=== PATIENT | male | born 1935 | race Caucasian/White ===

== ENCOUNTER → 2017-11-13 | Outpatient (CLI) | payer MEDICARE, BC ==
[2015-04-30 09:53] VITALS: BMI 28.4
[~2017-11-13] MED LIST: ACLI400A2 IH; AMLO-96 PO; AMLO-99 PO; AMO500 PO; ASC500 PO; ASPI-1471 PO; ASPI-757 PO; ATOR20TA22 PO; ATOR40TA24 PO; ATOR40TA69 PO; ATR80PT PO; AUG875 PO; Amoxicillin/Clavulanate K PO; Atorvastatin Calcium PO; CALC-1046; CALC-488 PO; CHERRY; CHERRY JUICE PO; CIT500PT PO; CITRUCEL; CLOB15CR21 TP; CLOB15CR22 TP; CLOB15OI16 TP; CLOP75TA PO; DOCU-202 PO; DOXY-181 PO; FERR325T24 PO; FLAV100L PO; GAB100 PO; GAB300 PO; GABA-490 PO; GABA-549 PO; HYDR12.556 PO; HYDR12.561 PO; HYDROCHLOROTHYAZIDE; LEVO-85 PO; LIS10 PO; LIS20 PO; LOR5/325 PO; LOSA100T63 PO; LOSA100T67 PO; LYSI500T34 PO; LYSINE; MAXIVISION; MELO-205 PO; METH454P5 PO; METO-222 PO; METO-257 PO; METO100T20 PO; METO1TAB5 PO; METOPROLOL PO; METR-1 PO; METR45CR9 TP; MULT1TAB64 PO; NEXIUM; OMEGA 3; OMEP-125 PO; ONDA4TAB PO; OXYGEN INH; OXYGENHOME INH; PANT40TA65 PO; PER PO; PIR10 PO; PRAS10TA PO; PSYL0.5235 PO; PSYL3.4P2 PO; PSYL660P5; RABE20TA33 PO; RANI-324 PO; SILD100T59 PO; SILD25TA6 PO; SIMV-44 PO; TADA5TAB7 PO; TIO18R INH; TRIA15CR40 TP; VERIFIED; VIAGRA; VITA400T7 PO; [UNRECOGNIZED DRUG - CODE] PO; [UNRECOGNIZED DRUG - CODE] TP; [UNRECOGNIZED DRUG - OTHER] PO
== END ==
LOC: LAB 14:32
PROVIDERS: ATTEND Nurse Practitioner Family
DX: Z02.9 Encounter for administrative examinations, unspecified (principal)
CPT/HCPCS: 88305

== ENCOUNTER 2017-12-08 13:34 | Outpatient (RCR) | payer MEDICARE, BC ==
[2015-04-30 09:53] VITALS: BMI 28.4
[2016-07-08 13:12] VITALS: BP 113/73
[~2017-12-08 13:34] MED LIST changes: +DIA5 PO; -RANI-324 PO; +RANI-366 PO
[2017-12-08] MEDS ORDERED: CALC1TAB32 PO (15:47)
[2017-12-09] MEDS ORDERED: GADOBENATE 529MG/1ML 15ML VIAL IVP ONE (13:33)
== END 2017-12-09 14:43 | disposition home or self-care (01) ==
LOC: RAON 13:34
PROVIDERS: ATTEND Radiology Radiation Oncology
DX: C61 Malignant neoplasm of prostate (principal)
CPT/HCPCS: 36415; 84153; A9577; G0463; 99212

== ENCOUNTER → 2017-12-09 | Outpatient (CLI) | payer MEDICARE, BC ==
[2015-04-30 09:53] VITALS: BMI 28.4
[~2017-12-09] MED LIST changes: +CALC1TAB32 PO
[2017-12-09 10:20] LABS: PLATELET COUNT, AUTOMATED 217 K/uL (150-450)
--- NOTE | 2017-12-09 14:56 | RADIOLOGY IMAGING REPORT ---
FACILITY: [facility] PATIENT NAME: Sonu Garcia : 1935 MR: [id number] V: [id number] EXAM DATE: ORDERING PHYSICIAN: JIMMY WOLFE TECHNOLOGIST: Location: [facility] Patient: Sonu Garcia : 1935 Visit/Account:[id number] Date of Sevice: 12/09/2017 EXAMINATION: MRI Brain without IV contrast MRI Brain with IV contrast History: TIA, history of CVA. COMPARISON STUDIES: 10/18/2014 TECHNIQUE: Multi-planar, multi-sequence brain MRI was performed before and after IV gadolinium. Contrast: 15 mL of IV gadobenate FINDINGS: Paranasal sinuses / mastoid air cells: Mild progression of paranasal sinus disease. A left mastoid e ffusion appears stable. New small right mastoid effusion. Calvarium and scalp: negative White matter: Remote right occipital lobe infarct. Stable findings of mild chronic small vessel dise ase. Ventricles / sulci / fissures: negative Masses / hemorrhage / midline shift: negative Extra-axial spaces: Normal for age. Enhancement pattern: negative Vascular structures: negative Sagittal midline structures: negative Orbits: negative Visualized upper neck: negative IMPRESSION: 1. No evidence of an intracranial mass, hemorrhage or acute ischemia. 2. Stable findings of mild chronic small vessel disease and remote right occipital lobe infarct. 3. Progression of moderate paranasal sinus disease. 4. New small right mastoid effusion, a left mastoid effusion appear stable. Report Dictated By: Niles Garcia MD at 12/09/2017 2:46 PM Report E-Signed By: Niles Garcia MD at 12/09/2017 2:51 PM WSN:[id number]
== END ==
LOC: MRI 01:19
PROVIDERS: ATTEND Internal Medicine
DX: G93.6 Cerebral edema (principal); G45.9 Transient cerebral ischemic attack, unspecified; J44.9 Chronic obstructive pulmonary disease, unspecified; Z86.73 Personal history of transient ischemic attack (TIA), and cerebral infarction without residual deficits
CPT/HCPCS: 36415; 70553; 82040; 82247; 82310; 82374; 82435; 82565; 82947; 84075; 84132; 84155; 84295; 84450; 84460; 84520; 85025

== ENCOUNTER → 2018-08-24 | Outpatient (CLI) | payer MEDICARE, BC ==
[2015-04-30 09:53] VITALS: BMI 28.4
[~2018-08-24] MED LIST changes: +AMLO-125 PO; +AMLO-127 PO; -AMLO-96 PO; -AMLO-99 PO; +AMLO2.5T78 PO; -LOSA100T67 PO; +LOSA100T75 PO; +LOSA50TA80 PO
[2018-08-24 14:52] LABS: PLATELET COUNT, AUTOMATED 221 K/uL (150-450)
[2018-08-24 14:53] LABS: LDL CHOLESTEROL 65 mg/dl
== END ==
LOC: LAB 14:17
PROVIDERS: ATTEND Internal Medicine
DX: I10 Essential (primary) hypertension (principal); Z86.73 Personal history of transient ischemic attack (TIA), and cerebral infarction without residual deficits; E78.5 Hyperlipidemia, unspecified
CPT/HCPCS: 36415; 82040; 82247; 82310; 82374; 82435; 82465; 82565; 82947; 83718; 84075; 84132; 84155; 84295; 84443; 84450; 84460; 84478; 84520; 85025

== ENCOUNTER 2018-09-04 10:54 | Emergency (ER) | payer OTHER, MEDICARE, BC ==
[2015-04-30 09:53] VITALS: Wt 85.7 kg
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
[2018-09-04] MEDS ORDERED: AMLO-125 PO (11:28)
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
[2018-09-04 14:30] VITALS: BP 158/92
== END 2018-09-04 14:51 | disposition home or self-care (01) ==
LOC: ER 11:05
DX: S16.1XXA Strain of muscle, fascia and tendon at neck level, initial encounter (principal); V49.40XA Driver injured in collision with unspecified motor vehicles in traffic accident, initial encounter
CPT/HCPCS: 70450; 72125; 99284

== ENCOUNTER → 2018-09-04 | Outpatient (CLI) | payer OTHER, MEDICARE, BC ==
[2015-04-30 09:53] VITALS: BMI 28.4
== END ==
LOC: AMB 10:36
PROVIDERS: ATTEND Nurse Practitioner
DX: R51 Headache (principal); M54.2 Cervicalgia; Z79.01 Long term (current) use of anticoagulants; R09.02 Hypoxemia; V49.60XA Unspecified car occupant injured in collision with unspecified motor vehicles in traffic accident, initial encounter
CPT/HCPCS: A0425; A0427

== ENCOUNTER → 2018-11-01 | Outpatient (CLI) | payer MEDICARE, BC ==
[2015-04-30 09:53] VITALS: BMI 28.4
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
== END ==
LOC: RAD 15:21
PROVIDERS: ATTEND Internal Medicine
DX: M17.12 Unilateral primary osteoarthritis, left knee (principal)

== ENCOUNTER 2018-11-19 09:45 | Emergency (ER) | payer MEDICARE, BC ==
[2015-04-30 09:53] VITALS: Wt 86.0 kg
--- NOTE | 2018-11-19 09:57 | ER Report ---
History and Physical Time Seen By : 09:57 HPI/ROS 83 y/o male presents to the ED with a complaint of feeling lightheaded briefly. Symptoms have resolved. Denies CP/SOB/abdominal pain/n/v/d. No GAINES. No recent trauma. Has taken less PO, but does not know why. Denies focal neuro deficits. Allergies: Uncoded Allergies: HAYFEVER (Allergy, Unknown, UNKNOWN, 01/14/12) Home Meds Active Scripts Pantoprazole Sodium (PANTOPRAZOLE SODIUM) 40 Mg Tablet.dr, 40 MG PO QDAY, #90 TAB.SR 3 Refills Prov:JIMMY WOLFE MD 08/24/18 Atorvastatin Calcium (LIPITOR) 40 Mg Tablet, 1 TAB PO QDAY, #90 TAB 3 Refills Prov:JIMMY WOLFE MD 08/24/18 Gabapentin (NEURONTIN) 300 Mg Capsule, 1 CAP PO TID, #270 CAPSULE 3 Refills Prov:JIMMY WOLFE MD 08/24/18 Prasugrel Hcl (EFFIENT) 10 Mg Tablet, 10 MG PO QDAY, #90 TAB 3 Refills Prov:JIMMY WOLFE MD 08/24/18 Losartan Potassium (LOSARTAN POTASSIUM) 50 Mg Tablet, 50 MG PO QDAY, #90 TAB 3 Refills Prov:JIMMY WOLFE MD 08/24/18 Metoprolol Tartrate (METOPROLOL TARTRATE) 100 Mg Tablet, 1 TAB PO BID, #180 TAB 3 Refills Prov:JIMMY WOLFE MD 08/24/18 Reported Medications Amlodipine Besylate (AMLODIPINE BESYLATE) 5 Mg Tablet, 0.5 TAB PO QDAY for Blood Pressure for 90 Days, #90 TAB 09/04/18 Calcium Carb & Cit/Vitamin D3 (CALCIUM + D3 ER TABLET) 1 Each Tablet.er, 1 EACH PO DAILY 12/08/17 Clobetasol Propionate (CLOBETASOL PROPIONATE) 15 Gm Cream..g., TP PRN for PAIN 05/15/17 Multivitamin (MULTI VITAMIN DAILY) 1 Each Tablet, 1 EACH PO QDAY 05/15/17 Oxygen (OXYGEN) Inha, 3-4 L INH, L 01/28/17 Psyllium Husk (Metamucil) Unknown Strength Powder, BID 01/28/17 Tellez Flavor (TELLEZ CONCENTRATE) Unknown Strength Syrup, 3 OZ PO DAILY 01/28/17 Discontinued Reported Medications Tadalafil (CIALIS) 5 Mg Tablet, 1-2 TAB PO PRN 01/28/17 Hx Smoking: No Smoking Status: Never Smoker Hx Substance Use Disorder: No Hx Alcohol Use: Yes Constitutional Vital Sign - Last 24 Hours 11/19/18 11/19/18 11/19/18 11/19/18 09:53 09:53 10:00 10:15 Temp 97.3 Pulse 58 48 47 Resp 14 16 8 B/P (MAP) 136/86 136/86 (103) 135/74 (94) Pulse Ox 88 90 93 O2 Delivery Nasal Cannula 11/19/18 11/19/18 11/19/18 11/19/18 10:30 10:45 11:00 11:15 Pulse ??? 47 ??? 47 Resp 15 15 22 B/P (MAP) 129/80 (96) ???/??? (1665) Pulse Ox 92 92 90 11/19/18 11/19/18 11/19/18 11/19/18 11:27 11:30 11:35 11:50 Pulse 48 49 48 Resp 13 21 14 B/P (MAP) 122/82 (95) Pulse Ox 91 92 90 O2 Flow Rate 3.0 11/19/18 11/19/18 12:00 12:05 Pulse 49 B/P (MAP) 134/82 (99) Pulse Ox 90 Physical Exam General Appearance: The patient is alert, has no immediate need for airway protection and no current signs of toxicity. Eyes: Pupils equal and round no injection. Respiratory: Chest is non tender, lungs are clear to auscultation. Cardiac: regular rate and rhythm Gastrointestinal: Abdomen is soft and non tender, no masses, bowel sounds normal. Neck: Neck is supple and non tender. Extremities have full range of motion and are non tender. Skin: No rashes or lesions. Medical Decision Making Data Points Result Diagram: 11/19/1895411/19/18954 Laboratory Hematology Test 11/19/18 09:55 11/19/18 10:57 Red Blood Count 5.76 M/uL (4.00-5.60) Mean Corpuscular Volume 92.2 fL (80.0-96.0) Mean Corpuscular Hemoglobin 30.5 pg (26.0-33.0) Mean Corpuscular Hemoglobin Concent 33.1 g/dL (32.0-36.0) Red Cell Distribution Width 13.7 % (11.5-14.5) Mean Platelet Volume 7.9 fL (7.2-11.1) Neutrophils (%) (Auto) 71.0 % (39.4-72.5) Lymphocytes (%) (Auto) 10.7 % (17.6-49.6) Monocytes (%) (Auto) 12.6 % (4.1-12.4) Eosinophils (%) (Auto) 4.2 % (0.4-6.7) Basophils (%) (Auto) 1.5 % (0.3-1.4) Nucleated RBC Relative Count (auto) 0.0 /100WBC Neutrophils # (Auto) 3.7 K/uL (2.0-7.4) Lymphocytes # (Auto) 0.6 K/uL (1.3-3.6) Monocytes # (Auto) 0.7 K/uL (0.3-1.0) Eosinophils # (Auto) 0.2 K/uL (0.0-0.5) Basophils # (Auto) 0.1 K/uL (0.0-0.1) Nucleated RBC Absolute Count (auto) 0.00 K/uL Sodium Level 137 mmol/L (137-145) Potassium Level 4.2 mmol/L (3.5-5.0) Chloride Level 104 mmol/L (98-107) Carbon Dioxide Level 25 mmol/L (22-30) Blood Urea Nitrogen 19 mg/dl (9-21) Creatinine 1.10 mg/dl (0.66-1.25) Glomerular Filtration Rate Calc > 60.0 Random Glucose 90 mg/dl (75-110) Calcium Level 8.9 mg/dl (8.4-10.2) Total Bilirubin 0.9 mg/dl (0.2-1.3) Aspartate Amino Transf (AST/SGOT) 27 U/L (0-35) Alanine Aminotransferase (ALT/SGPT) 24 U/L (0-56) Alkaline Phosphatase 66 U/L (0-126) Total Protein 7.0 g/dl (6.3-8.2) Albumin 4.4 g/dl (3.5-5.0) Urine Color Straw Urine Clarity Clear Urine pH 7.0 pH (4.8-9.5) Urine Specific Bradford 1.004 Urine Protein Negative mg/dL (NEGATIVE) Urine Glucose (UA) Negative mg/dL (NEGATIVE) Urine Ketones Negative mg/dL (NEGATIVE) Urine Blood Negative (NEGATIVE) Urine Nitrite Negative (NEGATIVE) Urine Bilirubin Negative (NEGATIVE) Urine Urobilinogen Negative mg/dL (0.2-1.9) Urine Leukocyte Esterase Negative (NEGATIVE) Urine RBC None /HPF (0-2/HPF) Urine WBC <1 /HPF (0-5/HPF) Urine Squamous Epithelial Cells None /LPF (</=FEW) Urine Bacteria Negative /HPF (NONE-FEW) Urine Mucus None /HPF (NONE-FEW) Chemistry Test 11/19/18 09:55 11/19/18 10:57 White Blood Count 5.3 k/uL (4.5-11.0) Red Blood Count 5.76 M/uL (4.00-5.60) Hemoglobin 17.5 g/dL (14.0-18.0) Hematocrit 53.0 % (42.0-52.0) Mean Corpuscular Volume 92.2 fL (80.0-96.0) Mean Corpuscular Hemoglobin 30.5 pg (26.0-33.0) Mean Corpuscular Hemoglobin Concent 33.1 g/dL (32.0-36.0) Red Cell Distribution Width 13.7 % (11.5-14.5) Platelet Count 197 K/uL (150-450) Mean Platelet Volume 7.9 fL (7.2-11.1) Neutrophils (%) (Auto) 71.0 % (39.4-72.5) Lymphocytes (%) (Auto) 10.7 % (17.6-49.6) Monocytes (%) (Auto) 12.6 % (4.1-12.4) Eosinophils (%) (Auto) 4.2 % (0.4-6.7) Basophils (%) (Auto) 1.5 % (0.3-1.4) Nucleated RBC Relative Count (auto) 0.0 /100WBC Neutrophils # (Auto) 3.7 K/uL (2.0-7.4) Lymphocytes # (Auto) 0.6 K/uL (1.3-3.6) Monocytes # (Auto) 0.7 K/uL (0.3-1.0) Eosinophils # (Auto) 0.2 K/uL (0.0-0.5) Basophils # (Auto) 0.1 K/uL (0.0-0.1) Nucleated RBC Absolute Count (auto) 0.00 K/uL Glomerular Filtration Rate Calc > 60.0 Calcium Level 8.9 mg/dl (8.4-10.2) Total Bilirubin 0.9 mg/dl (0.2-1.3) Aspartate Amino Transf (AST/SGOT) 27 U/L (0-35) Alanine Aminotransferase (ALT/SGPT) 24 U/L (0-56) Alkaline Phosphatase 66 U/L (0-126) Total Protein 7.0 g/dl (6.3-8.2) Albumin 4.4 g/dl (3.5-5.0) Urine Color Straw Urine Clarity Clear Urine pH 7.0 pH (4.8-9.5) Urine Specific Bradford 1.004 Urine Protein Negative mg/dL (NEGATIVE) Urine Glucose (UA) Negative mg/dL (NEGATIVE) Urine Ketones Negative mg/dL (NEGATIVE) Urine Blood Negative (NEGATIVE) Urine Nitrite Negative (NEGATIVE) Urine Bilirubin Negative (NEGATIVE) Urine Urobilinogen Negative mg/dL (0.2-1.9) Urine Leukocyte Esterase Negative (NEGATIVE) Urine RBC None /HPF (0-2/HPF) Urine WBC <1 /HPF (0-5/HPF) Urine Squamous Epithelial Cells None /LPF (</=FEW) Urine Bacteria Negative /HPF (NONE-FEW) Urine Mucus None /HPF (NONE-FEW) Urinalysis Test 11/19/18 10:57 Urine Color Straw Urine Clarity Clear Urine pH 7.0 pH (4.8-9.5) Urine Specific Bradford 1.004 Urine Protein Negative mg/dL (NEGATIVE) Urine Glucose (UA) Negative mg/dL (NEGATIVE) Urine Ketones Negative mg/dL (NEGATIVE) Urine Blood Negative (NEGATIVE) Urine Nitrite Negative (NEGATIVE) Urine Bilirubin Negative (NEGATIVE) Urine Urobilinogen Negative mg/dL (0.2-1.9) Urine Leukocyte Esterase Negative (NEGATIVE) Urine RBC None /HPF (0-2/HPF) Urine WBC <1 /HPF (0-5/HPF) Urine Squamous Epithelial Cells None /LPF (</=FEW) Urine Bacteria Negative /HPF (NONE-FEW) Urine Mucus None /HPF (NONE-FEW) ED Course/Re-evaluation ED Course Vague feeling of feeling lightheaded. No chest pain, no SOB. No evidence of infection. No focal neuro deficits. No further testing needed. Will follow up with her PCM. Decision to Disposition Date: Nov 21, 2018 Decision to Disposition Time: 15:09 Depart Departure Latest Vital Signs Vital Signs Date Time Temp Pulse Resp B/P (MAP) Pulse Ox O2 Delivery O2 Flow Rate FiO2 11/19/18 12:05 49 90 11/19/18 12:00 134/82 (99) 11/19/18 11:50 14 11/19/18 11:27 3.0 11/19/18 09:53 97.3 Nasal Cannula Impression: Primary Impression: Dizziness Condition: Improved Disposition: HOME OR SELF-CARE Referrals: JIMMY WOLFE MD (PCP) Patient Instructions: Dizziness (ED) ROLDAN TAPIA MD Nov 19, 2018 09:57
--- NOTE | 2018-11-19 10:11 | EKG ---
FACILITY: [facility] PATIENT NAME: ARJUN BYRD : [id number] MR: [id number] V: [id number] EXAM DATE: ORDERING PHYSICIAN: ROLDAN TAPIA TECHNOLOGIST: COLIN Test Reason : POSSIBLE STROKE Blood Pressure : / mmHG Vent. Rate : 048 BPM Atrial Rate : 048 BPM P-R Int : 216 ms QRS Dur : 080 ms QT Int : 444 ms P-R-T Axes : 055 069 044 degrees QTc Int : 396 ms Marked sinus bradycardia with 1st degree AV block Anterolateral infarct , age undetermined Abnormal ECG When compared with ECG of 29-APR-2015 06:33, Vent. rate has decreased BY 40 BPM Anterior infarct is now present Anterolateral infarct is now present Confirmed by DACIA ALICIA ([id number]) on 11/20/2018 6:40:23 AM Referred By: JIMMY WOLFE Confirmed By:DACIA ALICIA
[2018-11-19 10:21] LABS: PLATELET COUNT, AUTOMATED 197 K/uL (150-450)
--- NOTE | 2018-11-19 10:41 | RADIOLOGY IMAGING REPORT ---
FACILITY: [facility] [place] PATIENT NAME: Sonu Garcia : 1935 MR: [id number] V: [id number] EXAM DATE: ORDERING PHYSICIAN: ROLDAN TAPIA TECHNOLOGIST: Location: [facility] [place] Patient: Sonu Garcia : 1935 Visit/Account:[id number] Date of Sevice: 11/19/2018 Study: Single portable view of the chest. Indication: Dizziness, confusion Comparison study: May 06, 2015 Technique: Single AP view of the chest demonstrates no evidence of acute infiltrate. There is no evid ence of pleural effusion or pneumothorax. The mediastinal, cardiac, and diaphragmatic contours are un remarkable. There is calcification of the aorta noted. This is unchanged. IMPRESSION: No acute cardiopulmonary abnormality identified. Report Dictated By: Jesús Witt at 11/19/2018 10:35 AM Report E-Signed By: Jesús Witt at 11/19/2018 10:36 AM WSN:[id number]
--- NOTE | 2018-11-19 11:13 | RADIOLOGY IMAGING REPORT ---
FACILITY: [facility] PATIENT NAME: Sonu Garcia : 1935 MR: [id number] V: [id number] EXAM DATE: ORDERING PHYSICIAN: ROLDAN TAPIA TECHNOLOGIST: Location: [facility] Patient: Sonu Garcia : 1935 Visit/Account:[id number] Date of Sevice: 11/19/[address] scan without contrast HISTORY: Confusion, fall on blood thinners COMPARISONS: September 04, 2018 TECHNIQUE: Non-contrast head CT was performed with sagittal and coronal reformations. One of the following dose optimization techniques was utilized in the performance of this exam: autom ated exposure control; adjustment of the mA and/or kV according to patient size; or use of iterative reconstruction technique. Specific details can be referenced in the facility's radiology CT exam ope rational policy. FINDINGS: There is no intracranial hemorrhage, hydrocephalus or midline shift. The basal cisterns, torres-white differentiation, and convexity sulci are maintained. Cataract postsurgical change noted. Mild uncha nged patchy white matter hypoattenuation. Unchanged right frontal periventricular chronic lacunar in farct. Unchanged small left mastoid effusion. Trace to small right mastoid effusion has decreased in size. Partially imaged left maxillary sinus mucosal thickening similar to prior. Unchanged thickened and sclerotic left maxillary sinus epps. No acute osseous abnormality. New debris along the left parie kyle scalp surface versus new superficial scalp nodule measures 9 mm, sagittal image 55. IMPRESSION: No acute intracranial abnormality. Mild unchanged chronic small vessel ischemic change. 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 9 mm superficial debris versus superficial scalp nodule in the left frontal vertex region is new comp ared to prior. Correlate with exam. Report Dictated By: Junaid Cruz MD at 11/19/2018 11:03 AM Report E-Signed By: Junaid Cruz MD at 11/19/2018 11:09 AM WSN:[id number]
[2018-11-19 12:00] VITALS: BP 134/82
== END 2018-11-19 12:21 | disposition home or self-care (01) ==
LOC: ER 10:03
DX: R42 Dizziness and giddiness (principal)
CPT/HCPCS: 70450; 71045; 81001; 82040; 82247; 82310; 82374; 82435; 82565; 82947; 84075; 84132; 84155; 84295; 84450; 84460; 84520; 85025; 93005; 99284

== ENCOUNTER 2019-01-18 16:00 | Outpatient (RCR) | payer MEDICARE, BC ==
[2015-04-30 09:53] VITALS: Wt 83.0 kg
[2019-01-12 10:10] VITALS: BP 138/84
[~2019-01-18 16:00] MED LIST changes: -CALC-488 PO; +CALC-743 PO; -OMEP-125 PO; +OMEP-126 PO; -RANI-366 PO; +RANI-54 PO
[2019-01-18 16:07] VITALS: BP 140/81
--- NOTE | 2019-01-19 05:17 | ONCOLOGY FOLLOW UP NOTE ---
EVENT DATE: January 18, 2019 CHIEF COMPLAINT/REASON FOR VISIT Patient has a history of prostate carcinoma. He is here for oncology surveillance appointment and review of updated labs. ONCOLOGY HISTORY 1. Diagnosis of [place] 3+3=6 adenocarcinoma of the prostate. Relatively low- risk tumor occupied 2% of the biopsy specimen with a baseline PSA of 1.2 to 2.4 ng/mL, diagnosed May 2006. 2. Patient opting for palladium-103 brachytherapy with delivery of 11,500 cGy to target volume on 09/30/2006. HISTORY OF PRESENT ILLNESS Patient was seen with his for a followup appointment. He is typically seen in the clinic once a year. He denies any voiding problems or concerns. He states he has excellent control. He does not get up at night. He does have occasional loose bowels, which he relates to prior bowel surgery listed below. Patient remains active despite his advanced age of 83 years. 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 Prior to this appointment, the patient had a PSA which was stable at 2.4 ng/mL. Previous value 2.45 ng/mL. MEDICATIONS 1. Pantoprazole 40 mg a day. 2. Lipitor 40 mg a day. 3. Neurontin 300 mg t.i.d. 4. Effient 10 mg daily. 5. Losartan 50 mg daily. 6. Amlodipine 5 mg a day. 7. Metoprolol 100 mg b.i.d. 8. Calcium with vitamin D. 9. Oxygen 3L. 10. Metamucil. ALLERGIES No medication allergies. PAST MEDICAL HISTORY 1. Prostate carcinoma. 2. Reflux. 3. Hypertension. 4. Postherpetic neuralgia. 5. Sleep apnea. 6. Gout. 7. GERD. 8. Sleep apnea. 9. COPD. 10. History of TIA. PAST SURGICAL HISTORY 1. Left shoulder surgery in [place], 2002. 2. Previous prostate biopsy. 3. Right knee surgery in 2003. 4. Previous partial colectomy, May 2015. He had cecal ulceration requiring the surgery. 5. Vasectomy. 6. Cataract extraction. 7. Tonsillectomy. FAMILY HISTORY Mother had cancer in the lymph glands, aged 53. Father had CVA. SOCIAL HISTORY Patient is retired, a nonsmoker. Social alcohol use. , accompanied by his spouse today. 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 Has used chewing tobacco in the past. REVIEW OF SYSTEMS Comprehensive review of systems notable for intermittent swelling in his ankles, difficulty hearing. Utilizes oxygen with exertion at 3L to 4L. Occasional loose bowels. PHYSICAL EXAMINATION GENERAL: A pleasant 83-year-old male of medium frame. VITAL SIGNS: Blood pressure 140/81, pulse 59, respirations 16, O2 saturation 90% on 3L. Weight was, I guess, 83 kg. LUNGS: Clear bilaterally. LYMPHATIC: No peripheral lymphadenopathy. CARDIOVASCULAR: Heart sounds regular. ABDOMEN: Soft. No gross organomegaly. RECTAL: Exam is deferred due to stable PSA. EXTREMITIES: No significant edema or cyanosis. NEUROLOGIC: Grossly intact. IMPRESSIONS A remarkable 83-year-old gentleman with remote history of prostate carcinoma 12 years ago. His PSA is stable at this time. No additional therapeutic intervention is planned at this juncture. All questions were answered to his satisfaction over a 40-minute followup appointment today, of which 30 minutes were spent face to face with the patient for complex counseling. Medical record was updated for the chart as well. Patient will return to the clinic in one year with a PSA. He will continue regular medical care with Dr. Padilla, which is ongoing. No medication changes today. EDMUNDO
== END 2019-02-07 13:44 | disposition home or self-care (01) ==
LOC: RAON 16:00
PROVIDERS: ATTEND Radiology Radiation Oncology
DX: Z85.46 Personal history of malignant neoplasm of prostate (principal)
CPT/HCPCS: 36415; 84153

== ENCOUNTER 2019-01-27 14:30 | Outpatient (RCR) | payer MEDICARE, BC ==
[2015-04-30 09:53] VITALS: BMI 28.4
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
--- NOTE | 2018-12-10 09:02 | PT PLAN OF CARE ---
Physician: Dr. Efraín Padilla Patient is being seen: 2x/week Therapist: Darlene Rust, PT Medical Diagnosis: S86.912A Strain of L knee Treatment Diagnosis: Same Date of Onset: 09/04/18 Date of Initial Evaluation: 11/09/18 Date patient was last seen: 12/09/18 Number of treatments: 10 Number of cancellations/No shows: 0 INTERVENTIONS: Manual Therapy, Strengthening/condition, Ice/Heat, Range of Motion/Stretching, Electrical Stim, Home Exercise Program GOALS/PATIENT'S GOAL: 4-6 weeks: Gilbert dons L sock and shoe without L popliteal fossa pain. progressing Patient Compliance: Excellent Prognosis: Excellent Reasons for continuing therapy: S: Gilbert denies L knee pain now except donning shoes and socks, tightness. O: ROM: L knee AROM -5 - 125 degrees. Figure 4 position R WNL, L hip improved ER, abduction. Strength: L quad remains 4+/5. Palpation: L popliteal fossa edema is resolved. Special Tests: Negative L knee ligament laxity tests, one click with R medial meniscal test, negative lateral meniscus. Mobility: Improving patellofemoral joint mobility. Gait: WNL except slight lack of extension. A/P: Sonu purvis (Bob) has resolved edema and needs to strengthen more and continue stretching. If you agree, we'll continue 2x/week for 1-2 weeks. Thank you. EDMUNDO
--- NOTE | 2019-01-04 15:59 | PT PLAN OF CARE ---
Physician: Dr. Efraín Padilla Patient is being seen: 2x/week Therapist: Darlene Rust, GINNY Medical Diagnosis: S86.912A Strain of L knee Treatment Diagnosis: Same Date of Onset: 09/04/18 Date of Initial Evaluation: 11/09/18 Date patient was last seen: 01/04/19 Number of treatments: 14 Number of cancellations/No shows: 0 INTERVENTIONS: Manual Therapy/STM/MET Strengthening/condition Ice/Heat Range of Motion Stretching Electrical Stim Home Exercise Program GOALS/PATIENT'S GOAL: 4-6 weeks: Gilbert dons L sock and shoe without L popliteal fossa pain. progressing Patient Compliance: Excellent Prognosis: Excellent Reasons for continuing therapy: S: Gilbert relates his L knee still aches with prolonged standing, 8/10 pain scale. He feels his knee does improve some days. Donning shoes and socks is painful in the anterior knee. O: ROM: L knee A/PROM 0/0 - 125/125 degrees. L hip PROM 125 deg. flexion, IR 20, ER 45 deg at 90 deg. hip flexion, abd 45 deg., add 40 deg. tight IT band. Figure 4 position R WNL, L less restricted at the knee in flexion, in the hip with ER, abduction. Strength: L quad 5-/5. Palpation: Popliteal fossa normal fullness, mild edema L lisa-patellar, painful in the distal quad and distal IT band. Mobility: Patellofemoral joint has tightened up again. A/P: Gilbert Garcia is still flaring wtih standing activities. If you agree, we'll continue PT 2x/week through January. Thank you.. EDMUNDO
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
== END 2019-02-07 ==
LOC: PT 14:30
PROVIDERS: ATTEND Internal Medicine
DX: S86.912A Strain of unspecified muscle(s) and tendon(s) at lower leg level, left leg, initial encounter (principal); J44.9 Chronic obstructive pulmonary disease, unspecified; I10 Essential (primary) hypertension; E78.00 Pure hypercholesterolemia, unspecified; C61 Malignant neoplasm of prostate; Z96.651 Presence of right artificial knee joint
CPT/HCPCS: 97010; 97014; 97032; 97110; 97124; 97140; 97161; G0283